=== PATIENT | male | born 1955 | race Caucasian/White ===

== ENCOUNTER 2023-07-14 00:20 | Emergency (ER) | payer MEDICARE, SELFPAY ==
--- NOTE | 2023-07-14 00:33 | ECG_ITS ---
Test Reason : CHEST PAIN Blood Pressure : / mmHG Vent. Rate : 124 BPM Atrial Rate : 124 BPM P-R Int : 116 ms QRS Dur : 158 ms QT Int : 378 ms P-R-T Axes : 056 260 094 degrees QTc Int : 543 ms Atrial-sensed ventricular-paced rhythm Biventricular pacemaker detected Abnormal ECG No previous ECGs available Referred By: Beckie Hoffman Electronically Signed By:JAG HUTCHISON MD
[2023-07-14] MEDS: Amiodarone HCL 900 MG in 0.9 % Sodium Chloride 500 ML 34.53 MG IVCONT (01:03)
[2023-07-14 01:15] VITALS: BMI 28.9
[2023-07-14 01:19] VITALS: BP 97/66; PULSE 114; RESP 15; TEMP 35.1; O2SAT 98
--- NOTE | 2023-07-14 01:19 | MHC.EDTECH ---
call out to [facility] anchor tack puller at [phone] Hoffman
--- NOTE | 2023-07-14 01:20 | MHC.EDTECH ---
call out to raine at 0058 for [facility] stemi stat transport
[2023-07-14] MEDS: Aspirin 300 MG SUPP.RECT PR (01:21)
--- NOTE | 2023-07-14 01:22 | ED_ITS ---
HPI - CPR General Stated Complaint: Cardiac arrest Time Seen by Provider: 07/14/23 00:31 Source: EMS Mode of arrival: EMS History of Present Illness HPI narrative: Patient comes to the emergency room via ambulance in cardiac arrest. According to EMS, 10 minutes before they arrived to the patient's resident, patient called because he was complaining of severe chest pain. When EMS arrived, the patient was awake, alert, patient seemed confused altered, patient was trying to get by himself into the ambulance and while he was stepping into an ambulance, patient got shocked by his defibrillator and found the ground. CPR was started. It was noted that the patient was in V-tach. Patient got shocked multiple times by his internal defibrillator. Multiple doses of epinephrine were given by EMS. When patient arrived to emergency room, patient was in PA. Related Data Allergies Allergy/AdvReac Type Severity Reaction Status Date / Time No Known Allergies Allergy Unverified 08/18/20 15:30 [No Known Allergies*] Review of Systems Review of Systems: Yes Unobtainable due to mental condition [facility] Past Medical History Medical History (Updated 07/14/23 @ 01:29 by Beckie Hoffman MD) Coronary artery disease Surgical History (Updated 07/14/23 @ 01:24 by Beckie Hoffman MD) Hx of CABG Social History Social History Advance Directives: No Advance Directives Information Provided: No Physical Exam Vital Signs: Vital Signs: BMI result Body Mass Index 28.9 Const: Other: Appearance: In cardiac arrest Eyes: Pupils equal, round and reactive to light. ENT: Patient was intubated Neck: Normal inspection. Neck supple. No lymph nodes noted. No crepitus CVS: CPR in progress Respiratory: Patient being ventilated by Ambu bag Abdomen: Soft and distended Skin: Skin cold and mottled Extremities: No lower extremity edema. No Lacerations. No Rash Neuro: Intubated Psych: Intubated Medications Administered Generic Name Dose Route Start Last Admin Trade Name Freq PRN Reason Stop Dose Admin Amiodarone HCl 900 mg/ Sodium 518 mls @ 34.533 mls/hr 07/14/23 01:00 07/14/23 01:03 Chloride IVCONT 1 mg/min .Q15H1M RENATO 34.53 mls/hr Administration Protocol 1 MG/MIN Heparin Sodium/Sodium Chloride 25,000 unit in 250 mls @ 0 mls/hr 07/14/23 01:15 07/14/23 01:25 Heparin Sodium,Porcine/1/2ns IVCONT 14 units/kg/hr .Q0M RENATO 12.81 mls/hr Administration Protocol Per Protocol Discontinued Medications Generic Name Dose Route Start Last Admin Trade Name Osmarq PRN Reason Stop Dose Admin Aspirin 300 mg 07/14/23 01:10 07/14/23 01:21 Aspirin 300 Mg Supp.Rect OR 07/14/23 01:11 300 mg ONCE ONE Administration Heparin Sodium (Porcine) 4,000 unit 07/14/23 01:24 07/14/23 01:32 Heparin Sodium,Porcine 1,000 Unit/Ml Vial IV 07/14/23 01:25 4,000 unit ONCE ONE Administration Medical Decision Making Medical Decision Making [facility] Narrative: after several rounds of CPR and epinephrine, patient regained Rosc. However, shortly after patient went into pulseless V-tach and patient was shocked. Overall, we lost pulses 3 times. Patient was shocked 3 times. Patient received 300 mg of amiodarone push, then 150 mg, patient is now on an amiodarone drip. Patient is also now on a heparin drip and patient received rectal aspirin 300 mg -I discussed the patient with Interventional Cardiology, patient will be transferred to the cardiac care unit. At this time, EKG shows a heart rate of 124, atrial sensed ventricular paced, patient has an inferior STEMI. Blood pressure 101/60, patient intubated oxygen saturation 100% -the nurses said that it did not have enough lines. I placed a femoral central line -it has been almost an hour since the patient went to cardiac arrest Differential Diagnosis Differential Diagnoses: The differential diagnosis associated with the presentation includes (STEMI, V-tach, VFib) Admission/Observation Consideration of admission/observation: Escalation of care including admission/observation considered Consult Healthcare Provider Management of the patient was discussed with: [employer] Operations Intelligence Officer Procedures Central Line Placement Right Femoral: Time Out Performed: Yes Patient Placed on Monitor/Pulse Ox: Yes Prep: mask, gown and gloves Central Line Prep: Chlorhexidine scrub Ultrasound Used for Placement: Yes Central Line Lumen Inserted: triple Post Procedure: sutured in place, good blood return, all ports aspirated, flushed, capped and sterile dressing applied Patient Tolerated Procedure: well and no complications Complications: none Critical Care Time Critical Care Time Critical Care Time: Yes Total Critical Care Time: 60 Attestation: I have personally provided critical care time. Time includes review of lab data, radiology results, discussion with consultants, and monitoring for potential decompensation. Intervention performed as documented. Discharge Plan Discharge Clinical Impression: ST elevation ND (STEMI), Cardiac arrest Patient Disposition: [facility] Transfer Details: [facility] Cardiac Care urine
[2023-07-14] MEDS: Heparin Sodium,Porcine/1/2NS 25,000 UNIT/250 ML IV.SOLN 12.81 UNIT IVCONT (01:25)
[2023-07-14] MEDS: Heparin Sodium,Porcine 1,000 UNIT/ML VIAL 4000 UNIT IV (01:32)
[2023-07-14 01:48] VITALS: BP 100/69; PULSE 100; RESP 16; TEMP 35.6; O2SAT 96
[2023-07-14 02:02] VITALS: BP 105/72; PULSE 115; RESP 16; O2SAT 97
[2023-07-14 02:06] VITALS: BP 105/72; PULSE 114; RESP 19; O2SAT 97
[2023-07-14] MEDS: Midazolam HCl/NS 50 MG/50 ML PLAST..BAG IVCONT (02:06)
[2023-07-14] MEDS: LORazepam 2 MG/ML VIAL 4 MG IVPUSH (02:21)
--- NOTE | 2023-07-14 02:45 | PC.NURSE ---
Late entry: 1220: pt arrived in ED via Pop, Igel airway in place, IO in RLE established by EMS. Pt on jean-pierre, 2mg epi already given en-route 1221: no pulse, moved from EMS stretcher to ED stretcher 1222: epinephrine 1mg, bicarb 50mEq 1223: attempted and successful intubation 7.5 and 25 @lip, 138 POC 1224: pt in vtach, no shock advised, resume CPR 1225: 1mg epi, 50 bicarb 1226: pulse regained 1227: lost pulse, resumed CPR 1228: no pulse at pulse check, amiodarone 300mg given 1230: pulse regained, sinus tach 1231: Ekg performed, vitals as follows 105, 22, 95% BMV, 39 CO2, 104/62 1236: pt continues with pulse, patient had two second run of vtach 1237: shock advised, shock delivered, 1mg epinephrine 1238: 150mg amiodarone given 1239: no pulse, no shock advised, CPR resumed, 1mg epi given 1241: no pulse, no shock advised, CPR resumed 1243: shock advised, resume CPR 1244: 50mEq bicarb given 1245: 1mg epinephrine given 1248: pulse regained, vitals as follows 107 P, 100% BMV, 17 RR, 117/54 BP, 23 CO2 1250: amiodarone 1mg/min started per protocol 1251: 50mEq bicarb given 1253: patient in sinus tach, had 2 beats of vtach 0100: no pulse again, CPR resumed, 1mg Epi given 0102: no pulse, CPR resumed, 1mg Epi 0103: 50mEq bicarb given, faint pulse 0104: full pulse regained, vitals as follows 134 P, 19RR, 23 CO2, 97% BMV 0108: 50mEq bicarb given 0109: internal defib fired, vitals as follows 118/85 BP, 114 P, 77% vent, 23 CO2 0115: bertrand cath placed with temp sensing, 20ml output 0118: vitals as follow 117 P, 95% vent, 19 RR, 23 CO2, 101/66 BP 0125: heparin drip started at 14 u/hr, initial bolus of 4,000 units given 0138: second IV started 0150: central line placed my MD Hoffman 0158: 4mg IVP Ativan given for sedation 0206: versed started at 2mg/hr 0215: report give to Kirsten at [facility] 0225: pt departed via EMS
[2023-07-14 02:48] VITALS: BMI 28.9
[2023-07-16 07:16] LABS: Glucose, Whole Blood 138 mg/dL (60-115)
== END 2023-07-14 03:25 | disposition short-term general hospital (02) ==
PROVIDERS: Emergency Provider Emergency Medicine
DX: I46.9 Cardiac arrest, cause unspecified (principal); I21.3 ST elevation (STEMI) myocardial infarction of unspecified site; I47.20 Ventricular tachycardia, unspecified; R41.0 Disorientation, unspecified; Z79.899 Other long term (current) drug therapy
CPT/HCPCS: 36556; 82947; 93005; 96361; 96365; 96366; 96375; 96376; 99285; J0171; J0282; J1643; J2060; J2251

== ENCOUNTER → 2023-07-14 00:33 | Outpatient (BNV) | payer MEDICARE, SELFPAY | PROVIDERS: Emergency Provider Emergency Medicine; Visit Provider Internal Medicine Cardiovascular Disease | DX: R94.31 Abnormal electrocardiogram [ECG] [EKG] (principal); R07.9 Chest pain, unspecified | CPT/HCPCS: 93010 ==